=== PATIENT | male | born 1995 | race Caucasian/White ===

== ENCOUNTER → 2017-06-30 19:46 | Outpatient (CLI) | payer BC, SELFPAY | PROVIDERS: Visit Provider Physician Assistant | DX: J02.9 Acute pharyngitis, unspecified (principal) | CPT/HCPCS: 87081 ==

== ENCOUNTER 2017-08-30 19:06 | Emergency (ER) | payer BC, SELFPAY ==
[2017-08-30 19:07] VITALS: BP 164/98; PULSE 106; RESP 20; TEMP 36.6; O2SAT 98; BMI 26.9
--- NOTE | 2017-08-30 19:51 | CT_ITS ---
STUDY: CT FACIAL BONES WITHOUT CONTRAST REASON FOR EXAM: Male, 22 years old. Trauma RADIATION DOSAGE (If Supplied By Facility): CTDIvol = ( 29.38 ) mGy, DLP = ( 532.76 ) mGycm TECHNIQUE: The patient was scanned in a multi detector CT scanner. Sagittal and coronal images were reconstructed. Individualized dose optimization techniques were used for this CT. COMPARISON: None. FINDINGS: Normal soft tissue structures. Normal orbital wells and orbital contents. Normal nasal bones and anterior nasal spine. Normal facial bones. There is no demonstrated fracture. Normal visualized paranasal sinuses. CT/Sinus/Facial Bone IMPRESSION: Normal unenhanced CT of the facial bones. Electronically Signed: Ace Fernandez MD at 20:29 EDT , Service support ,
--- NOTE | 2017-08-30 20:40 | ED.VISSUMM ---
- ER Visit Summary Date of Service: 08/30/17 Chief Complaint: Jaw injury History of Present Illness: The patient is a 22 M who was at [employer] [facility]. 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 He does not typically have his jaw open but it was in a foul ball hit him just to the right of center. He states he immediately had some pain in his jaw. He noted slight headache which is resolved. States he can open his close his jaw okay but he when he goes to apply force with the teeth to bite down it hurts at the angle of the mandible. Physical Examination: Afebrile vital signs are stable Gen: Well-nourished well-developed Head: Normocephalic atraumatic Eyes: Perrl EOMI ENT: TMs clear no rhinorrhea moist mucous membranes there is no malalignment of the teeth. Patient is unable to break a tongue depressor stick. He has tenderness along the angle of the bilateral mandibles. No TMJ pain. No zygomatic arch tenderness. Neck: Supple no lymphadenopathy no JVD nontender CVS: Regular rate rhythm no murmurs normal S1-S2 Respiratory: No distress clear to auscultation bilaterally chest nontender Abdomen: Soft nontender nondistended normal bowel sounds no masses Back: Nontender Extremity: Nontender no edema Skin: Normal color no rash Neuro: alert orientated ?3 CN II-XII intact normal strength sensation reflexes gait cerebellar Psych: Normal affect normal mood Test Results: CT of the facial bones is negative for fracture Emergency Department Course and Treatment: Will be placed on a soft diet. He will be allowed to return to play return if worsening. Impression: 1. Masseter muscle strain This note was generated with [employer] dictation software. It may contain incorrect words, spelling, and punctuation that were not noted in review of the chart prior to signing ED Disposition - Plan for ED Patient: Disposition: Home or Assisted Living Chief Complaint: Other, Pain/Inj Additional Instructions: Follow-up with your dolphin trainer. Avoid hard to chew foods for the next week. Yogurts, protein shakes, things like that to allow your child to rest.
--- NOTE | 2017-08-30 20:48 | ED.DCSUM_ITS ---
- ER Visit Summary Date of Service: 08/30/17 Chief Complaint: Jaw injury History of Present Illness: The patient is a 22 M who was at [employer] [facility]. 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 He does not typically have his jaw open but it was in a foul ball hit him just to the right of center. He states he immediately had some pain in his jaw. He noted slight headache which is resolved. States he can open his close his jaw okay but he when he goes to apply force with the teeth to bite down it hurts at the angle of the mandible. Physical Examination: Afebrile vital signs are stable Gen: Well-nourished well-developed Head: Normocephalic atraumatic Eyes: Perrl EOMI ENT: TMs clear no rhinorrhea moist mucous membranes there is no malalignment of the teeth. Patient is unable to break a tongue depressor stick. He has tenderness along the angle of the bilateral mandibles. No TMJ pain. No zygomatic arch tenderness. Neck: Supple no lymphadenopathy no JVD nontender CVS: Regular rate rhythm no murmurs normal S1-S2 Respiratory: No distress clear to auscultation bilaterally chest nontender Abdomen: Soft nontender nondistended normal bowel sounds no masses Back: Nontender Extremity: Nontender no edema Skin: Normal color no rash Neuro: alert orientated ?3 CN II-XII intact normal strength sensation reflexes gait cerebellar Psych: Normal affect normal mood Test Results: CT of the facial bones is negative for fracture Emergency Department Course and Treatment: Will be placed on a soft diet. He will be allowed to return to play return if worsening. Impression: 1. Masseter muscle strain This note was generated with [employer] dictation software. It may contain incorrect words, spelling, and punctuation that were not noted in review of the chart prior to signing ED Disposition - Plan for ED Patient: Disposition: Home or Assisted Living Chief Complaint: Other, Pain/Inj Additional Instructions: Follow-up with your net trainer. Avoid hard to chew foods for the next week. Yogurts, protein shakes, things like that to allow your child to rest.
== END 2017-08-30 20:48 | disposition home or self-care (01) ==
PROVIDERS: Emergency Provider Emergency Medicine
DX: S09.11XA Strain of muscle and tendon of head, initial encounter (principal); W21.03XA Struck by baseball, initial encounter; Y93.64 Activity, baseball; Y92.9 Unspecified place or not applicable; Y99.8 Other external cause status
CPT/HCPCS: 70486; 99282